=== PATIENT | male | born 2000 | race Caucasian/White ===

== ENCOUNTER 2023-09-23 12:44 | Emergency (ER) | payer MEDICAID, SELFPAY ==
[2023-09-23 12:45] VITALS: BP 137/94; PULSE 90; RESP 18; TEMP 36.9; O2SAT 99
--- NOTE | 2023-09-23 14:45 | RT.EKG_ITS ---
APPROVED REPORT Exam: Resting ECG Reason for Exam: blurred vision Patient Location: E HR:79 bpm ECG Measurements Heart Rate 79 AXIS FL 132 P 85 QRSd 111 QRS 105 QT 376 T 69 QTc 432 Conclusion Sinus rhythm...normal P axis, V-rate 60- 99 Probable left atrial enlargement...P >50mS, <-0.10mV V1 sinus rhtyhm, normal axis, normal intervals, partial RBBB, deep s waves V2 V3 likely related to thin habitus and pectus excavatum; no evidence of HOCM, ARVD, Brugada, or WPW; non ischemic
--- NOTE | 2023-09-23 15:10 | ED.GENADUL_ITS ---
Discharge Plan Disposition Patient Disposition: Home Condition: Improving Discharge Details Chief Complaint: GenMedical Clinical Impression: Vasovagal near-syncope Primary Care Provider: Unknown,Unknown ED Provider: Román Meek Home Meds and New Rx's Prescriptions: No Action No Known Home Meds Discharge Instructions Instructions: Syncope (ED) Additional Instructions: Please follow-up closely with your primary care physician. Return to the emerged part for any worsening symptoms HPI General Date/Time Provider Initiated Documentation: 09/23/23 14:00 . HPI Narrative: 23-year-old male presents brought by father for evaluation of brief episode of rapid heart rate and darkening of his vision while he was seated on the toilet in the restroom, resolved currently, no chest pain or shortness of breath no loss of conscious, no nausea no vomiting no headache no neck pain. Currently resting comfortably, vision has returned back to normal. No family history of premature cardiac . Father does have diagnosis of Marfan syndrome Related Data Home Medications Medication Instructions Recorded Confirmed Unknown [No Known Home Meds] 07/31/23 09/23/23 Allergies Allergy/AdvReac Type Severity Reaction Status Date / Time No Known Allergies Allergy Verified 09/23/23 12:49 General Stated Complaint: GenMedical DENISE: 3 Review of Systems Narrative: Review of Systems Constitutional: negative Eyes: negative ENT: negative Cardiovascular: Rapid heart rate Respiratory: negative Gastrointestinal: negative : negative Musculoskeletal: negative Skin: negative Neurologic: Brief blurring of vision Psych: negative Exam Narrative Exam Narrative: Physical Examination General: alert, awake, cooperative, resting comfortably, no acute distress HEENT: normocephalic, atraumatic; PERRL, EOM intact, conjunctiva normal; no nasal discharge; moist mucous membranes, oral and pharyngeal mucosa normal, tolerating secretions Neck: supple, trachea midline; full ROM Chest: normal to inspection Respiratory: normal respiratory effort, speaking in full sentences, clear to auscultation, no wheezing, rales or rhonchi Cardiac: regular rate, regular rhythm, S1S2 intact, no murmurs rubs or gallops GI: abdomen soft, non-tender, non-distended; no palpable mass or hepatosplenomegaly Skin: no lesions, rashes or trauma appreciated Neuro: AAOx3, cranial nerves II through XII intact out of 5 strength upper and lower extremities bilaterally, normal speech, no ataxia Psych: Appropriate mood and affect Course Vital Signs Vital signs: Vital Signs Temperature 36.9 C 09/23/23 12:45 Pulse 90 09/23/23 12:45 Respiratory Rate 18 09/23/23 12:45 Blood Pressure 137/94 H 09/23/23 12:45 Pulse Oximetry 99 09/23/23 12:45 Temperature 36.9 C 09/23/23 12:45 Temperature Source Temporal Artery Scan 09/23/23 12:45 Pulse 90 09/23/23 12:45 Respiratory Rate 18 09/23/23 12:45 Respiratory Effort Normal, Non-Labored 09/23/23 12:49 Blood Pressure 137/94 H 09/23/23 12:45 Blood Pressure Position Sitting 09/23/23 12:45 Pulse Oximetry 99 09/23/23 12:45 Oxygen Delivery Method Room Air 09/23/23 12:45 Oxygen Flow Rate 0 09/23/23 12:45 Pain Level 0 09/23/23 12:45 Medical Decision Making 23-year-old male presents brought by father for evaluation of brief episode of rapid heart rate and darkening of his vision while he was seated on the toilet in the restroom, resolved currently, no chest pain or shortness of breath no loss of conscious, no nausea no vomiting no headache no neck pain. Currently resting comfortably, vision has returned back to normal. No family history of premature cardiac . Father does have diagnosis of Marfan syndrome. Patient resting actively no acute distress hemodynamically stable afebrile nontoxic, no focal neurologic deficits, lung and heart sounds clear no murmur, no chest pain or shortness of breath. Symptoms have completely resolved. EKG normal sinus rhythm component of likely partial right bundle branch block without ischemic changes deep S waves V2 V3 however patient has a slim body habitus likely accentuating voltages. No EKG evidence of HOCM, no evidence of ARVD, no evidence of WPW or Brugada; despite family history of Marfan's, low suspicion for aortic pathology or carotid dissection. Low suspicion for ACS or PE given history and physical. Given brief resolved symptomatology in the setting of sitting on the toilet then proceeding to a standing position likely vasovagal episode/orthostatic episode. Discussed with family and patient at length the likely diagnosis however encouraged strict return precautions for any worsening or continued symptomatology. Patient will follow close with primary care physician. 15: 51 patient resting comfortably asymptomatic patient and family feel comfortable going home follow-up closely with primary care physician. Strict re turn precautions given Quality:SDOH Health Related Social Needs: No Data to Display PFSH All Active Problems (Updated 09/23/23 @ 15:52 by Román Meek MD) Vasovagal near-syncope (Acute) Social History Smoking/Tobacco Use Status: Never Smoking risk assessment performed?: Yes Alcohol Intake: never Drug use: Never Substance use type: does not use
== END 2023-09-23 16:09 | disposition home or self-care (01) ==
PROVIDERS: Emergency Provider Emergency Medicine
DX: R55 Syncope and collapse (principal); H53.9 Unspecified visual disturbance
CPT/HCPCS: 93005; 99283; 93010